=== PATIENT | male | born 1940 | race Caucasian/White ===

== ENCOUNTER 2017-09-17 21:44 | Inpatient (IN) | payer MEDICARE, OTHER ==
[2017-09-17] MEDS: ASPIRIN 325 MG TAB PO (22:12)
[2017-09-17] MEDS: IPRATROPIUM (NEB) 0.5 MG/2.5 ML AMP HHN (22:18)
[2017-09-17] MEDS: ALBUTEROL 0.083% (NEB) 2.5 MG/3 ML AMP HHN (22:18)
[2017-09-17] MEDS: SODIUM CHLORIDE 0.9% 1L BAG IV* (22:46)
[2017-09-17] MEDS: CEFEPIME 2GM/50 ML (PMX) 50 ML IVPB (22:46)
[2017-09-17] MEDS: VANCOMYCIN 1 GM (PMX) 250 ML IVPB (23:00)
[2017-09-17 23:11] LABS: ADD MAN DIFF? NO
[2017-09-17 23:17] LABS: ABNORMAL IP MESSAGE 1; BASOPHILS % 0.1 % (0.0-2.0); HEMATOCRIT 36.2 % (42.0-52.0); HEMOGLOBIN 12.5 g/dl (14.0-18.0); LYMPHOCYTES # 0.3 10^3/ul (0.8-2.9); MEAN CORPUSCULAR HGB CONC 34.5 g/dl (32.0-37.0); MEAN PLATELET VOLUME 12.3 fl (7.4-10.4); MONOCYTE # 0.5 10^3/ul (0.3-0.9); MONOCYTES % 3.2 % (0.0-11.0); NEUTROPHIL # 15.2 10^3/ul (1.6-7.5); NEUTROPHILS % 94.2 % (39.0-77.0); PLATELET COUNT 219 10^3/UL (140-415); POSITIVE DIFF @See below; RED BLOOD COUNT 4.16 10^6/ul (4.70-6.10); RED CELL DISTRIBUTION WIDTH 13.1 % (11.5-14.5)
[2017-09-17 23:17] LABS: WHITE BLOOD COUNT 16.1 10^3/ul (4.8-10.8)
[2017-09-17 23:37] LABS: LACTIC ACID 1.7 mmol/L (0.5-2.0)
[2017-09-17 23:39] LABS: INR 3.17; PROTIME 33.5 Sec (11.9-14.9); PT RATIO 2.6
[2017-09-17 23:40] LABS: PARTIAL THROMBOPLASTIN TIME 45.8 Sec (25.0-35.0)
[2017-09-17 23:42] LABS: ANION GAP 19 (8-16); BLOOD UREA NITROGEN 30 mg/dl (7-20); CALCIUM 9.9 mg/dl (8.4-10.2); CARBON DIOXIDE 25 mmol/L (21-31); CHLORIDE 101 mmol/L (97-110); CREATININE 0.94 mg/dl (0.61-1.24); GLUCOSE 134 mg/dl (70-220); POTASSIUM 4.4 mmol/L (3.5-5.1); SODIUM 141 mmol/L (135-144)
[2017-09-17 23:49] LABS: B-TYPE NATRIURETIC PEPTIDE 2490 PG/ML (0-450)
[2017-09-17 23:50] LABS: TROPONIN-I < 0.012 ng/ml (0.00-0.12)
[2017-09-18] MEDS: DILTIAZEM 25 MG INJ IV (00:01)
[2017-09-18] MEDS: DILTIAZEM-D5W 125MG/125ML DRIP 125 ML IV ×2 (00:19→21:43)
[2017-09-18] MEDS: FUROSEMIDE 40 MG INJ IV ×2 (00:22→22:48)
[2017-09-18] MEDS ORDERED: ONDANSETRON 4 MG INJ IV ×2 (00:30→09:30)
[2017-09-18] MEDS ORDERED: ACETAMINOPHEN 325 MG TAB PO (00:30)
[2017-09-18 04:56] LABS: LACTIC ACID 5.5 mmol/L (0.5-2.0)
[2017-09-18 05:03] LABS: CREATINE KINASE 156 IU/L (23-200)
[2017-09-18 05:16] LABS: CK INDEX 2.9; TROPONIN-I 0.027 ng/ml (0.00-0.12)
[2017-09-18 05:20] LABS: CK-MB 4.51 ng/ml (0.0-2.4)
[2017-09-18 06:18] LABS: LACTIC ACID 4.4 mmol/L (0.5-2.0)
[2017-09-18 06:20] LABS: CREATINE KINASE 165 IU/L (23-200)
[2017-09-18 06:25] LABS: CK INDEX 2.8
[2017-09-18 06:34] LABS: CK-MB 4.57 ng/ml (0.0-2.4)
[2017-09-18] MEDS: ALBUTEROL 0.083% (NEB) 2.5 MG/3 ML AMP HHN (07:12)
[2017-09-18] MEDS ORDERED: NITROGLYCERIN (SL) 0.4 MG TAB SL (09:30)
[2017-09-18] MEDS ORDERED: NACL 0.9% 3 ML SYG IV (09:30)
[2017-09-18] MEDS ORDERED: morphine 2 MG INJ IV (09:30)
[2017-09-18] MEDS ORDERED: NON-FORMULARY/PATIENT OWN MED (Memantine HCl/Donepezil HCl (Namzaric 28 mg-10 mg Capsule) PO (09:30)
[2017-09-18] MEDS ORDERED: LEVOFLOXACIN 500MG/D5W (PMX) 100 ML IVPB (09:30)
[2017-09-18] MEDS: CEFTRIAXONE 1 GM/NS 50 ML IVPB (09:41)
[2017-09-18] MEDS: METOPROLOL 25 MG TAB PO (09:41)
[2017-09-18] MEDS: SALMETEROL/FLUTICASONE 250/50 INHA INH ×2 (10:12→21:00)
[2017-09-18] MEDS: TAMSULOSIN (SR) 0.4 MG CAP PO ×2 (10:12→21:14)
[2017-09-18] MEDS: AZITHROMYCIN 500MG/NS (PMX) 250 ML IV (10:47)
[2017-09-18 10:58] LABS: LACTIC ACID 2.9 mmol/L (0.5-2.0)
[2017-09-18 15:49] LABS: ADD UMIC YES; UR ASCORBIC ACID NEGATIVE (NEGATIVE); UR BILIRUBIN (Dip) NEGATIVE (NEGATIVE); UR BLOOD (Dip) NEGATIVE (NEGATIVE); UR CLARITY CLEAR (CLEAR); UR COLOR YELLOW (YELLOW); UR GLUCOSE (Dip) NEGATIVE (NEGATIVE); UR KETONES (Dip) NEGATIVE (NEGATIVE); UR LEUKOCYTE ESTERASE (Dip) TRACE Leu/ul (NEGATIVE); UR NITRITE (Dip) NEGATIVE (NEGATIVE); UR RBC 1 /HPF (0-5); UR SPECIFIC GRAVITY (Dip) 1.017 (1.003-1.030); UR TOTAL PROTEIN (Dip) NEGATIVE (NEGATIVE); UR UROBILINOGEN (Dip) NEGATIVE (NEGATIVE); UR WBC 6 /HPF (0-5)
[2017-09-18 19:05] LABS: LACTIC ACID 1.6 mmol/L (0.5-2.0)
[2017-09-18] MEDS: ALBUTEROL/IPRATROPIUM (NEB) 3 ML AMP HHN (20:35)
[2017-09-18] MEDS ORDERED: ZOLPIDEM 5 MG TAB PO (21:00)
[2017-09-18] MEDS: ATORVASTATIN 20 MG TAB PO (21:00)
[2017-09-18] MEDS: MEMANTINE 10 MG TAB PO (21:00)
[2017-09-18] MEDS: ZOLPIDEM 5 MG TAB PO (21:31)
[2017-09-18] MEDS ORDERED: FUROSEMIDE 40 MG INJ (22:42)
[2017-09-18] MEDS ORDERED: METHYLPREDNISOLONE 40 MG INJ IV (23:00)
[2017-09-18] MEDS ORDERED: METHYLPREDNISOLONE 125 MG INJ (23:16)
[2017-09-18 23:35] LABS: AADO2 Arterial 466.6 mmHg (7.0-24.0); Allen Test ACCEPTAB; Arterial Base Excess -2.1 mmol/L (-3.0-3); Arterial Blood Gas Oxygen Sat 98.9 mmHG (95.0-100.0); Arterial COHb 0.3 % (0.0-3.0); Arterial Fraction of Oxyhgb 98.4 % (93.0-99.0); Arterial HCO3 25.4 mmol/L (22.0-26.0); Arterial MetHb 0.2 % (0.0-1.5); Arterial Total Hemglobin 13.1 g/dl (12.0-18.0); Arterial pCO2 55.6 mmhg (35-45); MODE MASK - NRB; Site Right Radial
[2017-09-18] MEDS ORDERED: LORAZEPAM 2 MG INJ (23:37)
[2017-09-18] MEDS: LORAZEPAM 2 MG INJ IV (23:43)
[2017-09-18] MEDS: METHYLPREDNISOLONE 125 MG INJ IV (23:43)
[2017-09-19 00:47] LABS: LACTIC ACID 0.8 mmol/L (0.5-2.0)
[2017-09-19] MEDS: LORAZEPAM 2 MG INJ IV ×2 (01:42→08:42)
[2017-09-19] MEDS: ALBUTEROL/IPRATROPIUM (NEB) 3 ML AMP HHN ×6 (02:06→20:31)
[2017-09-19 05:10] LABS: ADD MAN DIFF? NO
[2017-09-19 05:15] LABS: WHITE BLOOD COUNT 8.6 10^3/ul (4.8-10.8)
[2017-09-19 05:15] LABS: ABNORMAL IP MESSAGE 1; BASOPHILS % 0.1 % (0.0-2.0); HEMATOCRIT 31.7 % (42.0-52.0); HEMOGLOBIN 10.6 g/dl (14.0-18.0); LYMPHOCYTES # 0.3 10^3/ul (0.8-2.9); LYMPHOCYTES % 3.3 % (15.0-51.0); MEAN CORPUSCULAR HEMOGLOBIN 29.6 pg (29.0-33.0); MEAN CORPUSCULAR HGB CONC 33.4 g/dl (32.0-37.0); MEAN CORPUSCULAR VOLUME 88.5 fl (82.0-101.0); MEAN PLATELET VOLUME 12.3 fl (7.4-10.4); MONOCYTE # 0.2 10^3/ul (0.3-0.9); MONOCYTES % 2.7 % (0.0-11.0); NEUTROPHIL # 8.1 10^3/ul (1.6-7.5); NEUTROPHILS % 93.9 % (39.0-77.0); PLATELET COUNT 168 10^3/UL (140-415); POSITIVE DIFF @See below; RED BLOOD COUNT 3.58 10^6/ul (4.70-6.10); RED CELL DISTRIBUTION WIDTH 13.2 % (11.5-14.5)
[2017-09-19] MEDS ORDERED: IPRATROPIUM (NEB) 0.5 MG/2.5 ML AMP HHN (06:30)
[2017-09-19] MEDS: DILTIAZEM-D5W 125MG/125ML DRIP 125 ML IV (06:48)
[2017-09-19 07:40] LABS: ALANINE AMINOTRANSFERASE 44 IU/L (13-69); ALBUMIN 3.7 g/dl (3.3-4.9); ALBUMIN/GLOBULIN RATIO 1.48; ALKALINE PHOSPHATASE 71 IU/L (42-121); ANION GAP 19 (8-16); ASPARTATE AMINO TRANSFERASE 42 IU/L (15-46); BILIRUBIN,INDIRECT 0.5 mg/dl (0-1.1); BILIRUBIN,TOTAL 0.5 mg/dl (0.2-1.3); BLOOD UREA NITROGEN 31 mg/dl (7-20); CALCIUM 8.8 mg/dl (8.4-10.2); CARBON DIOXIDE 25 mmol/L (21-31); CHLORIDE 104 mmol/L (97-110); CREATININE 0.84 mg/dl (0.61-1.24); GLUCOSE 125 mg/dl (70-220); SODIUM 144 mmol/L (135-144); TOTAL PROTEIN 6.2 g/dl (6.1-8.1)
[2017-09-19] MEDS: DONEPEZIL 10 MG TAB PO (09:00)
[2017-09-19] MEDS: FINASTERIDE 5 MG TAB PO (09:00)
[2017-09-19] MEDS: MEMANTINE 10 MG TAB PO ×2 (09:00→20:33)
[2017-09-19] MEDS: TAMSULOSIN (SR) 0.4 MG CAP PO ×2 (09:00→20:33)
[2017-09-19] MEDS: FUROSEMIDE 40 MG INJ IV ×2 (09:32→17:58)
[2017-09-19 09:44] LABS: AADO2 Arterial 434.7 mmHg (7.0-24.0); Allen Test ACCEPTAB; Arterial Base Excess 2.8 mmol/L (-3.0-3); Arterial COHb 0.3 % (0.0-3.0); Arterial Fraction of Oxyhgb 98.5 % (93.0-99.0); Arterial HCO3 26.9 mmol/L (22.0-26.0); Arterial MetHb 0.2 % (0.0-1.5); Arterial Total Hemglobin 11.8 g/dl (12.0-18.0); Arterial pCO2 39.6 mmhg (35-45); MODE MASK - NRB; Site Left Radial
[2017-09-19] MEDS: CEFTRIAXONE 1 GM/NS 50 ML IVPB (10:12)
[2017-09-19] MEDS: AZITHROMYCIN 500MG/NS (PMX) 250 ML IV (11:00)
[2017-09-19 12:44] LABS: LACTIC ACID 1.3 mmol/L (0.5-2.0)
[2017-09-19 14:24] LABS: INR 2.97; PROTIME 31.8 Sec (11.9-14.9); PT RATIO 2.5
[2017-09-19 18:52] LABS: LACTIC ACID 1.3 mmol/L (0.5-2.0)
[2017-09-19] MEDS: ATORVASTATIN 20 MG TAB PO (20:33)
[2017-09-19] MEDS: SALMETEROL/FLUTICASONE 250/50 INHA INH (23:36)
[2017-09-20] MEDS: ALBUTEROL/IPRATROPIUM (NEB) 3 ML AMP HHN ×6 (01:52→20:09)
[2017-09-20 05:15] LABS: AADO2 Arterial 125.2 mmHg (7.0-24.0); Allen Test ACCEPTAB; Arterial Base Excess 5.6 mmol/L (-3.0-3); Arterial Blood Gas Oxygen Sat 95.6 mmHG (95.0-100.0); Arterial COHb 0.3 % (0.0-3.0); Arterial Fraction of Oxyhgb 95.1 % (93.0-99.0); Arterial HCO3 29.1 mmol/L (22.0-26.0); Arterial MetHb 0.2 % (0.0-1.5); Arterial Total Hemglobin 11.7 g/dl (12.0-18.0); Arterial pCO2 38.5 mmhg (35-45); MODE MASK - VENTI; Site Left Radial
[2017-09-20] MEDS: FUROSEMIDE 40 MG INJ IV ×2 (05:22→17:50)
[2017-09-20] MEDS: PANTOPRAZOLE 40 MG INJ IV (05:22)
[2017-09-20 06:05] LABS: ADD MAN DIFF? NO
[2017-09-20 06:21] LABS: WHITE BLOOD COUNT 7.6 10^3/ul (4.8-10.8)
[2017-09-20 06:21] LABS: ABNORMAL IP MESSAGE 1; HEMATOCRIT 33.9 % (42.0-52.0); HEMOGLOBIN 11.3 g/dl (14.0-18.0); LYMPHOCYTES # 0.5 10^3/ul (0.8-2.9); LYMPHOCYTES % 6.2 % (15.0-51.0); MEAN CORPUSCULAR HEMOGLOBIN 28.9 pg (29.0-33.0); MEAN CORPUSCULAR HGB CONC 33.3 g/dl (32.0-37.0); MEAN CORPUSCULAR VOLUME 86.7 fl (82.0-101.0); MEAN PLATELET VOLUME 12.3 fl (7.4-10.4); MONOCYTE # 0.4 10^3/ul (0.3-0.9); MONOCYTES % 5.5 % (0.0-11.0); NEUTROPHIL # 6.7 10^3/ul (1.6-7.5); NEUTROPHILS % 87.9 % (39.0-77.0); PLATELET COUNT 175 10^3/UL (140-415); POSITIVE DIFF @See below; RED BLOOD COUNT 3.91 10^6/ul (4.70-6.10)
[2017-09-20] MEDS: DILTIAZEM-D5W 125MG/125ML DRIP 125 ML IV ×2 (06:31→18:02)
[2017-09-20 06:54] LABS: INR 3.13; PROTIME 33.1 Sec (11.9-14.9); PT RATIO 2.6
[2017-09-20 06:58] LABS: ANION GAP 15 (8-16); BLOOD UREA NITROGEN 33 mg/dl (7-20); CALCIUM 9.2 mg/dl (8.4-10.2); CARBON DIOXIDE 34 mmol/L (21-31); CHLORIDE 100 mmol/L (97-110); CREATININE 0.77 mg/dl (0.61-1.24); GLUCOSE 152 mg/dl (70-220); SODIUM 146 mmol/L (135-144)
[2017-09-20 07:03] LABS: LACTIC ACID 1.1 mmol/L (0.5-2.0)
[2017-09-20] MEDS: FINASTERIDE 5 MG TAB PO (09:00)
[2017-09-20] MEDS: DONEPEZIL 10 MG TAB PO (09:00)
[2017-09-20] MEDS: TAMSULOSIN (SR) 0.4 MG CAP PO ×2 (09:00→20:41)
[2017-09-20] MEDS: MEMANTINE 10 MG TAB PO ×2 (09:00→20:40)
[2017-09-20] MEDS: POTASSIUM CHLORIDE 100 ML IVPB ×2 (09:41→11:38)
[2017-09-20] MEDS: SALMETEROL/FLUTICASONE 250/50 INHA INH ×2 (09:42→20:40)
[2017-09-20] MEDS: METHYLPREDNISOLONE 40 MG INJ IV ×3 (09:51→21:36)
[2017-09-20] MEDS: CEFEPIME 1GM/50 ML (PMX) 50 ML IVPB ×2 (09:52→20:40)
[2017-09-20 11:11] LABS: CHOL/HDL RATIO 3.3 RATIO; HDL CHOLESTEROL 45 mg/dl (31-75); LDL CHOLESTEROL,CALCULATED 90 mg/dl; TRIGLYCERIDES 68 mg/dl (0-149)
[2017-09-20 11:11] LABS: CHOLESTEROL 149 mg/dl (100-200); MAGNESIUM 2.4 mg/dl (1.7-2.5)
[2017-09-20 11:26] LABS: FREE T4 (FREE THYROXINE) 1.76 ng/dl (0.85-1.93)
[2017-09-20 11:41] LABS: THYROID STIMULATING HORMONE 0.143 MIU/L (0.465-4.680)
[2017-09-20] MEDS: AZITHROMYCIN 500MG/NS (PMX) 250 ML IV (11:50)
[2017-09-20 13:54] LABS: HEMOGLOBIN A1C 5.4 % (0-5.9)
[2017-09-20] MEDS: POTASSIUM CHLORIDE (SR) 20 MEQ TAB PO (15:55)
[2017-09-20] MEDS: DIGOXIN 500 MCG INJ IV ×2 (15:56→21:37)
[2017-09-20] MEDS: METOPROLOL 25 MG TAB PO ×2 (16:01→20:41)
[2017-09-20] MEDS: ATORVASTATIN 20 MG TAB PO (20:40)
[2017-09-20] MEDS: ZOLPIDEM 5 MG TAB PO (22:48)
[2017-09-21] MEDS: ALBUTEROL/IPRATROPIUM (NEB) 3 ML AMP HHN ×6 (00:27→21:28)
[2017-09-21] MEDS: ACETAMINOPHEN 325 MG TAB PO (05:23)
[2017-09-21 05:42] LABS: ADD MAN DIFF? NO
[2017-09-21 05:57] LABS: WHITE BLOOD COUNT 9.5 10^3/ul (4.8-10.8)
[2017-09-21 05:57] LABS: ABNORMAL IP MESSAGE 1; BASOPHILS % 0.1 % (0.0-2.0); HEMATOCRIT 34.2 % (42.0-52.0); HEMOGLOBIN 11.5 g/dl (14.0-18.0); LYMPHOCYTES # 0.4 10^3/ul (0.8-2.9); MEAN CORPUSCULAR HEMOGLOBIN 29.7 pg (29.0-33.0); MEAN CORPUSCULAR HGB CONC 33.6 g/dl (32.0-37.0); MEAN CORPUSCULAR VOLUME 88.4 fl (82.0-101.0); MEAN PLATELET VOLUME 12.5 fl (7.4-10.4); MONOCYTE # 0.2 10^3/ul (0.3-0.9); MONOCYTES % 2.2 % (0.0-11.0); NEUTROPHIL # 8.9 10^3/ul (1.6-7.5); NEUTROPHILS % 93.4 % (39.0-77.0); PLATELET COUNT 198 10^3/UL (140-415); POSITIVE DIFF @See below; RED BLOOD COUNT 3.87 10^6/ul (4.70-6.10); RED CELL DISTRIBUTION WIDTH 13.1 % (11.5-14.5)
[2017-09-21] MEDS: METHYLPREDNISOLONE 40 MG INJ IV ×2 (06:09→21:07)
[2017-09-21] MEDS: FUROSEMIDE 40 MG INJ IV ×2 (06:10→17:38)
[2017-09-21 06:18] LABS: INR 3.57; PROTIME 36.8 Sec (11.9-14.9); PT RATIO 2.9
[2017-09-21 06:20] LABS: ANION GAP 15 (8-16); BLOOD UREA NITROGEN 43 mg/dl (7-20); CALCIUM 9.5 mg/dl (8.4-10.2); CARBON DIOXIDE 35 mmol/L (21-31); CHLORIDE 101 mmol/L (97-110); CREATININE 0.81 mg/dl (0.61-1.24); GLUCOSE 173 mg/dl (70-220); SODIUM 147 mmol/L (135-144)
[2017-09-21 06:33] LABS: B-TYPE NATRIURETIC PEPTIDE 1920 PG/ML (0-450)
[2017-09-21] MEDS: CEFEPIME 1GM/50 ML (PMX) 50 ML IVPB ×2 (09:54→21:07)
[2017-09-21] MEDS: SALMETEROL/FLUTICASONE 250/50 INHA INH ×2 (09:57→21:51)
[2017-09-21] MEDS: TAMSULOSIN (SR) 0.4 MG CAP PO ×2 (10:00→21:08)
[2017-09-21] MEDS: MEMANTINE 10 MG TAB PO ×2 (10:00→21:08)
[2017-09-21] MEDS: DONEPEZIL 10 MG TAB PO (10:00)
[2017-09-21] MEDS: DILTIAZEM 30 MG TAB PO ×4 (10:00→21:09)
[2017-09-21] MEDS: METOPROLOL 25 MG TAB PO ×3 (10:00→21:09)
[2017-09-21] MEDS: FINASTERIDE 5 MG TAB PO (10:00)
[2017-09-21 11:37] LABS: PHOSPHORUS 2.6 mg/dl (2.5-4.9)
[2017-09-21 11:37] LABS: MAGNESIUM 2.6 mg/dl (1.7-2.5)
[2017-09-21] MEDS: AZITHROMYCIN 500MG/NS (PMX) 250 ML IV (13:03)
[2017-09-21] MEDS: ATORVASTATIN 20 MG TAB PO (21:08)
[2017-09-21] MEDS: DOCUSATE SODIUM 100 MG CAP PO (21:08)
[2017-09-22] MEDS: ALBUTEROL/IPRATROPIUM (NEB) 3 ML AMP HHN ×6 (01:21→20:40)
[2017-09-22] MEDS: POLYETHYLENE GLYCOL 17 GM PACKET PO ×2 (01:38→09:37)
[2017-09-22 05:16] LABS: ADD MAN DIFF? NO
[2017-09-22 05:24] LABS: ABNORMAL IP MESSAGE 1; BASOPHILS % 0.1 % (0.0-2.0); HEMATOCRIT 35.5 % (42.0-52.0); HEMOGLOBIN 12.1 g/dl (14.0-18.0); LYMPHOCYTES # 0.5 10^3/ul (0.8-2.9); MEAN CORPUSCULAR HGB CONC 34.1 g/dl (32.0-37.0); MEAN CORPUSCULAR VOLUME 88.1 fl (82.0-101.0); MEAN PLATELET VOLUME 12.4 fl (7.4-10.4); MONOCYTE # 0.3 10^3/ul (0.3-0.9); MONOCYTES % 2.2 % (0.0-11.0); NEUTROPHIL # 12.5 10^3/ul (1.6-7.5); NEUTROPHILS % 93.1 % (39.0-77.0); PLATELET COUNT 227 10^3/UL (140-415); POSITIVE DIFF @See below; RED BLOOD COUNT 4.03 10^6/ul (4.70-6.10)
[2017-09-22 05:24] LABS: WHITE BLOOD COUNT 13.5 10^3/ul (4.8-10.8)
[2017-09-22 05:35] LABS: ANION GAP 17 (8-16); BLOOD UREA NITROGEN 44 mg/dl (7-20); CALCIUM 9.3 mg/dl (8.4-10.2); CARBON DIOXIDE 34 mmol/L (21-31); CHLORIDE 97 mmol/L (97-110); CREATININE 0.83 mg/dl (0.61-1.24); GLUCOSE 156 mg/dl (70-220); POTASSIUM 3.7 mmol/L (3.5-5.1); SODIUM 144 mmol/L (135-144)
[2017-09-22 05:48] LABS: INR 2.28; PROTIME 25.7 Sec (11.9-14.9)
[2017-09-22 05:50] LABS: PHOSPHORUS 3.9 mg/dl (2.5-4.9)
[2017-09-22 05:50] LABS: MAGNESIUM 2.4 mg/dl (1.7-2.5)
[2017-09-22 05:53] LABS: FREE T4 (FREE THYROXINE) 1.26 ng/dl (0.85-1.93)
[2017-09-22 06:06] LABS: THYROID STIMULATING HORMONE 0.091 MIU/L (0.465-4.680)
[2017-09-22 06:08] LABS: LYMPHOCYTES % 3.9 % (15.0-51.0)
[2017-09-22] MEDS: FUROSEMIDE 40 MG INJ IV ×2 (06:47→17:14)
[2017-09-22] MEDS ORDERED: BISACODYL (EC) 5 MG TAB PO (09:30)
[2017-09-22] MEDS: METHYLPREDNISOLONE 40 MG INJ IV ×2 (09:37→22:39)
[2017-09-22] MEDS: CEFEPIME 1GM/50 ML (PMX) 50 ML IVPB (09:37)
[2017-09-22] MEDS: DONEPEZIL 10 MG TAB PO (09:38)
[2017-09-22] MEDS: MEMANTINE 10 MG TAB PO ×2 (09:38→22:41)
[2017-09-22] MEDS: DOCUSATE SODIUM 100 MG CAP PO ×2 (09:38→22:40)
[2017-09-22] MEDS: TAMSULOSIN (SR) 0.4 MG CAP PO ×2 (09:38→22:39)
[2017-09-22] MEDS: DILTIAZEM 30 MG TAB PO ×2 (09:38→13:00)
[2017-09-22] MEDS: FINASTERIDE 5 MG TAB PO (09:39)
[2017-09-22] MEDS: METOPROLOL 25 MG TAB PO ×3 (09:39→22:41)
[2017-09-22] MEDS: SALMETEROL/FLUTICASONE 250/50 INHA INH ×2 (09:39→22:39)
[2017-09-22] MEDS: DILTIAZEM (CD) 120 MG CAP PO ×2 (14:19→22:40)
[2017-09-22] MEDS: METHIMAZOLE 5 MG TAB PO (14:19)
[2017-09-22] MEDS: POTASSIUM CHLORIDE (SR) 20 MEQ TAB PO (14:22)
[2017-09-22] MEDS: AMIODARONE 200 MG TAB PO ×2 (14:23→22:41)
[2017-09-22] MEDS: ACETYLCYSTEINE 20% 4 ML VIAL NEB ×3 (14:39→20:33)
[2017-09-22] MEDS: WARFARIN 2 MG TAB PO (17:13)
[2017-09-22] MEDS: ATORVASTATIN 20 MG TAB PO (22:39)
[2017-09-23] MEDS: ACETYLCYSTEINE 20% 4 ML VIAL NEB ×6 (00:55→21:18)
[2017-09-23] MEDS: ALBUTEROL/IPRATROPIUM (NEB) 3 ML AMP HHN ×6 (01:37→21:18)
[2017-09-23] MEDS: FUROSEMIDE 40 MG INJ IV (06:35)
[2017-09-23 07:26] LABS: ADD MAN DIFF? NO
[2017-09-23 07:31] LABS: ABNORMAL IP MESSAGE 1; BASOPHILS % 0.1 % (0.0-2.0); HEMATOCRIT 37.9 % (42.0-52.0); HEMOGLOBIN 12.8 g/dl (14.0-18.0); LYMPHOCYTES # 0.5 10^3/ul (0.8-2.9); LYMPHOCYTES % 3.7 % (15.0-51.0); MEAN CORPUSCULAR HEMOGLOBIN 29.6 pg (29.0-33.0); MEAN CORPUSCULAR HGB CONC 33.8 g/dl (32.0-37.0); MEAN CORPUSCULAR VOLUME 87.5 fl (82.0-101.0); MEAN PLATELET VOLUME 12.1 fl (7.4-10.4); MONOCYTE # 0.4 10^3/ul (0.3-0.9); NEUTROPHIL # 11.9 10^3/ul (1.6-7.5); NEUTROPHILS % 91.3 % (39.0-77.0); PLATELET COUNT 259 10^3/UL (140-415); POSITIVE DIFF @See below; RED BLOOD COUNT 4.33 10^6/ul (4.70-6.10); RED CELL DISTRIBUTION WIDTH 12.8 % (11.5-14.5)
[2017-09-23 07:48] LABS: ANION GAP 15 (8-16); BLOOD UREA NITROGEN 44 mg/dl (7-20); CALCIUM 9.2 mg/dl (8.4-10.2); CARBON DIOXIDE 36 mmol/L (21-31); CHLORIDE 94 mmol/L (97-110); GLUCOSE 150 mg/dl (70-220); POTASSIUM 3.6 mmol/L (3.5-5.1); SODIUM 141 mmol/L (135-144)
[2017-09-23 07:51] LABS: INR 2.23; PROTIME 25.3 Sec (11.9-14.9)
[2017-09-23 07:54] LABS: MAGNESIUM 2.4 mg/dl (1.7-2.5)
[2017-09-23 07:54] LABS: PHOSPHORUS 3.7 mg/dl (2.5-4.9)
[2017-09-23] MEDS: DOCUSATE SODIUM 100 MG CAP PO ×2 (08:43→22:05)
[2017-09-23] MEDS: POLYETHYLENE GLYCOL 17 GM PACKET PO (08:43)
[2017-09-23] MEDS: MEMANTINE 10 MG TAB PO ×2 (08:43→22:06)
[2017-09-23] MEDS: METHYLPREDNISOLONE 40 MG INJ IV ×4 (08:43→23:51)
[2017-09-23] MEDS: SALMETEROL/FLUTICASONE 250/50 INHA INH ×2 (08:43→22:03)
[2017-09-23] MEDS: AMIODARONE 200 MG TAB PO (08:44)
[2017-09-23] MEDS: FINASTERIDE 5 MG TAB PO (08:44)
[2017-09-23] MEDS: DONEPEZIL 10 MG TAB PO (08:44)
[2017-09-23] MEDS: METOPROLOL 25 MG TAB PO ×3 (08:45→22:04)
[2017-09-23] MEDS: DILTIAZEM (CD) 120 MG CAP PO ×2 (08:45→22:05)
[2017-09-23] MEDS: TAMSULOSIN (SR) 0.4 MG CAP PO ×2 (08:49→22:05)
[2017-09-23] MEDS: POTASSIUM CHLORIDE (SR) 20 MEQ TAB PO (12:49)
[2017-09-23] MEDS: AMIODARONE 150MG/D5W BOLUS 100 ML IV (12:55)
[2017-09-23] MEDS: WARFARIN 2 MG TAB PO (17:30)
[2017-09-23] MEDS: ATORVASTATIN 20 MG TAB PO (21:00)
[2017-09-23] MEDS: clonAZEPAM 0.5 MG TAB PO (21:00)
[2017-09-23] MEDS: AMIODARONE 900 MG in DEXTROSE 5% 482 ML IV (23:18)
[2017-09-24] MEDS: ACETYLCYSTEINE 20% 4 ML VIAL NEB ×6 (00:42→20:47)
[2017-09-24] MEDS: ALBUTEROL/IPRATROPIUM (NEB) 3 ML AMP HHN ×6 (00:42→20:47)
[2017-09-24] MEDS: METHYLPREDNISOLONE 40 MG INJ IV ×3 (05:08→20:11)
[2017-09-24] MEDS: ACETAMINOPHEN 325 MG TAB PO ×2 (05:08→22:37)
[2017-09-24 09:04] LABS: ADD MAN DIFF? NO
[2017-09-24 09:08] LABS: ABNORMAL IP MESSAGE 1; BASOPHILS % 0.1 % (0.0-2.0); EOSINOPHILS % 0.1 % (0.0-7.0); HEMATOCRIT 36.2 % (42.0-52.0); HEMOGLOBIN 12.5 g/dl (14.0-18.0); LYMPHOCYTES # 0.6 10^3/ul (0.8-2.9); LYMPHOCYTES % 3.6 % (15.0-51.0); MEAN CORPUSCULAR HEMOGLOBIN 29.8 pg (29.0-33.0); MEAN CORPUSCULAR HGB CONC 34.5 g/dl (32.0-37.0); MEAN CORPUSCULAR VOLUME 86.4 fl (82.0-101.0); MEAN PLATELET VOLUME 12.5 fl (7.4-10.4); MONOCYTE # 0.4 10^3/ul (0.3-0.9); MONOCYTES % 2.1 % (0.0-11.0); NEUTROPHILS % 92.3 % (39.0-77.0); PLATELET COUNT 249 10^3/UL (140-415); POSITIVE DIFF @See below; RED BLOOD COUNT 4.19 10^6/ul (4.70-6.10); RED CELL DISTRIBUTION WIDTH 12.9 % (11.5-14.5)
[2017-09-24 09:08] LABS: WHITE BLOOD COUNT 16.3 10^3/ul (4.8-10.8)
[2017-09-24 09:35] LABS: ANION GAP 16 (8-16); BLOOD UREA NITROGEN 46 mg/dl (7-20); CALCIUM 9.4 mg/dl (8.4-10.2); CARBON DIOXIDE 35 mmol/L (21-31); CHLORIDE 92 mmol/L (97-110); CREATININE 0.87 mg/dl (0.61-1.24); GLUCOSE 151 mg/dl (70-220); POTASSIUM 3.8 mmol/L (3.5-5.1); SODIUM 139 mmol/L (135-144)
[2017-09-24 09:39] LABS: INR 3.33; PROTIME 34.8 Sec (11.9-14.9); PT RATIO 2.7
[2017-09-24 09:43] LABS: MAGNESIUM 2.5 mg/dl (1.7-2.5)
[2017-09-24 09:43] LABS: PHOSPHORUS 3.7 mg/dl (2.5-4.9)
[2017-09-24] MEDS: SALMETEROL/FLUTICASONE 250/50 INHA INH ×2 (10:26→20:17)
[2017-09-24] MEDS: FUROSEMIDE 40 MG INJ IV (10:27)
[2017-09-24] MEDS: METOPROLOL 25 MG TAB PO ×3 (10:28→20:10)
[2017-09-24] MEDS: TAMSULOSIN (SR) 0.4 MG CAP PO ×2 (10:28→20:09)
[2017-09-24] MEDS: MEMANTINE 10 MG TAB PO ×2 (10:28→20:09)
[2017-09-24] MEDS: DILTIAZEM (CD) 120 MG CAP PO (10:28)
[2017-09-24] MEDS: FINASTERIDE 5 MG TAB PO (10:29)
[2017-09-24] MEDS: DOCUSATE SODIUM 100 MG CAP PO ×2 (10:29→20:08)
[2017-09-24] MEDS: DONEPEZIL 10 MG TAB PO (10:41)
[2017-09-24] MEDS ORDERED: DIPHENHYDRAMINE 50 MG INJ IV (12:00)
[2017-09-24] MEDS ORDERED: OXYCODONE/ACETAMINOPHEN (5/325) TAB PO ×2 (12:00)
[2017-09-24] MEDS ORDERED: METOCLOPRAMIDE 10 MG INJ IV (12:00)
[2017-09-24] MEDS ORDERED: hydrALAzine 20 MG INJ IV (12:00)
[2017-09-24] MEDS ORDERED: EPHEDrine SULFATE 50 MG/5 ML SYG IV (12:00)
[2017-09-24] MEDS ORDERED: MIDAZOLAM 1 MG/ML 2 ML INJ IV (12:00)
[2017-09-24] MEDS ORDERED: MEPERIDINE 25 MG INJ IV (12:00)
[2017-09-24] MEDS ORDERED: ONDANSETRON 4 MG INJ IV (12:00)
[2017-09-24] MEDS ORDERED: FENTAnyl 50 MCG/ML VIAL IV ×3 (12:00)
[2017-09-24] MEDS ORDERED: LABETALOL HCL 20MG INJ IV (12:00)
[2017-09-24] MEDS: PROPOFOL 20 ML (13:18)
[2017-09-24] MEDS: POLYETHYLENE GLYCOL 17 GM PACKET PO (13:55)
[2017-09-24] MEDS: POTASSIUM CHLORIDE (SR) 10 MEQ TAB PO (13:56)
[2017-09-24] MEDS: ATORVASTATIN 20 MG TAB PO (20:09)
[2017-09-24] MEDS: DILTIAZEM (CD) 180 MG CAP PO (20:09)
[2017-09-25] MEDS: ALBUTEROL/IPRATROPIUM (NEB) 3 ML AMP HHN ×6 (00:57→21:15)
[2017-09-25] MEDS: ACETYLCYSTEINE 20% 4 ML VIAL NEB ×6 (00:57→21:16)
[2017-09-25] MEDS: METHYLPREDNISOLONE 40 MG INJ IV ×2 (04:29→21:59)
[2017-09-25 07:27] LABS: ADD MAN DIFF? NO
[2017-09-25 07:38] LABS: ABNORMAL IP MESSAGE 1; BASOPHILS % 0.1 % (0.0-2.0); HEMATOCRIT 34.4 % (42.0-52.0); LYMPHOCYTES # 0.6 10^3/ul (0.8-2.9); LYMPHOCYTES % 3.5 % (15.0-51.0); MEAN CORPUSCULAR HEMOGLOBIN 29.9 pg (29.0-33.0); MEAN CORPUSCULAR HGB CONC 34.9 g/dl (32.0-37.0); MEAN CORPUSCULAR VOLUME 85.6 fl (82.0-101.0); MEAN PLATELET VOLUME 12.3 fl (7.4-10.4); MONOCYTE # 0.4 10^3/ul (0.3-0.9); MONOCYTES % 2.3 % (0.0-11.0); NEUTROPHILS % 91.6 % (39.0-77.0); PLATELET COUNT 245 10^3/UL (140-415); POSITIVE DIFF @See below; RED BLOOD COUNT 4.02 10^6/ul (4.70-6.10); RED CELL DISTRIBUTION WIDTH 12.8 % (11.5-14.5)
[2017-09-25 07:38] LABS: WHITE BLOOD COUNT 16.4 10^3/ul (4.8-10.8)
[2017-09-25 07:51] LABS: MAGNESIUM 2.5 mg/dl (1.7-2.5)
[2017-09-25 07:59] LABS: ANION GAP 11 (8-16); BLOOD UREA NITROGEN 54 mg/dl (7-20); CALCIUM 9.1 mg/dl (8.4-10.2); CARBON DIOXIDE 35 mmol/L (21-31); CHLORIDE 92 mmol/L (97-110); CREATININE 0.94 mg/dl (0.61-1.24); GLUCOSE 121 mg/dl (70-220); POTASSIUM 3.9 mmol/L (3.5-5.1); SODIUM 134 mmol/L (135-144)
[2017-09-25 08:04] LABS: INR 4.49; PROTIME 44.2 Sec (11.9-14.9); PT RATIO 3.5
[2017-09-25] MEDS: SALMETEROL/FLUTICASONE 250/50 INHA INH ×2 (09:22→21:00)
[2017-09-25] MEDS: DONEPEZIL 10 MG TAB PO (09:25)
[2017-09-25] MEDS: MEMANTINE 10 MG TAB PO ×2 (09:25→22:00)
[2017-09-25] MEDS: FUROSEMIDE 40 MG INJ IV (09:25)
[2017-09-25] MEDS: FINASTERIDE 5 MG TAB PO (09:26)
[2017-09-25] MEDS: METOPROLOL 25 MG TAB PO ×3 (09:26→21:59)
[2017-09-25] MEDS: DILTIAZEM (CD) 180 MG CAP PO ×2 (09:26→22:00)
[2017-09-25] MEDS: DOCUSATE SODIUM 100 MG CAP PO ×2 (09:26→22:00)
[2017-09-25] MEDS: POLYETHYLENE GLYCOL 17 GM PACKET PO (09:27)
[2017-09-25] MEDS: TAMSULOSIN (SR) 0.4 MG CAP PO ×2 (09:39→21:59)
[2017-09-25] MEDS: ATORVASTATIN 20 MG TAB PO (21:59)
[2017-09-26] MEDS: ALBUTEROL/IPRATROPIUM (NEB) 3 ML AMP HHN ×4 (00:43→13:00)
[2017-09-26] MEDS: ACETYLCYSTEINE 20% 4 ML VIAL NEB ×4 (00:43→13:00)
[2017-09-26] MEDS: LEVALBUTEROL (NEB) 0.63 MG/3 ML AMP HHN (01:38)
[2017-09-26] MEDS: POLYETHYLENE GLYCOL 17 GM PACKET PO (09:00)
[2017-09-26] MEDS: MEMANTINE 10 MG TAB PO (09:18)
[2017-09-26] MEDS: DONEPEZIL 10 MG TAB PO (09:18)
[2017-09-26] MEDS: SALMETEROL/FLUTICASONE 250/50 INHA INH (09:18)
[2017-09-26] MEDS: METOPROLOL 25 MG TAB PO ×2 (09:19→13:00)
[2017-09-26] MEDS: DILTIAZEM (CD) 180 MG CAP PO (09:19)
[2017-09-26] MEDS: DOCUSATE SODIUM 100 MG CAP PO (09:19)
[2017-09-26] MEDS: TAMSULOSIN (SR) 0.4 MG CAP PO (09:19)
[2017-09-26] MEDS: FINASTERIDE 5 MG TAB PO (09:19)
[2017-09-26] MEDS: METHYLPREDNISOLONE 40 MG INJ IV (09:20)
[2017-09-26] MEDS: FUROSEMIDE 40 MG INJ IV (09:20)
[2017-09-26 09:46] LABS: ADD MAN DIFF? NO
[2017-09-26 09:59] LABS: WHITE BLOOD COUNT 18.6 10^3/ul (4.8-10.8)
[2017-09-26 09:59] LABS: ABNORMAL IP MESSAGE 1; BASOPHIL # 0.1 10^3/ul (0.0-0.1); BASOPHILS % 0.3 % (0.0-2.0); HEMATOCRIT 38.5 % (42.0-52.0); HEMOGLOBIN 13.3 g/dl (14.0-18.0); LYMPHOCYTES # 0.5 10^3/ul (0.8-2.9); LYMPHOCYTES % 2.5 % (15.0-51.0); MEAN CORPUSCULAR HEMOGLOBIN 29.6 pg (29.0-33.0); MEAN CORPUSCULAR HGB CONC 34.5 g/dl (32.0-37.0); MEAN CORPUSCULAR VOLUME 85.7 fl (82.0-101.0); MEAN PLATELET VOLUME 12.3 fl (7.4-10.4); MONOCYTE # 0.7 10^3/ul (0.3-0.9); MONOCYTES % 3.9 % (0.0-11.0); NEUTROPHIL # 16.6 10^3/ul (1.6-7.5); NEUTROPHILS % 89.1 % (39.0-77.0); PLATELET COUNT 234 10^3/UL (140-415); POSITIVE DIFF @See below; RED BLOOD COUNT 4.49 10^6/ul (4.70-6.10); RED CELL DISTRIBUTION WIDTH 12.2 % (11.5-14.5)
[2017-09-26 10:17] LABS: INR 2.89; PROTIME 31.1 Sec (11.9-14.9); PT RATIO 2.4
[2017-09-26 10:25] LABS: ALANINE AMINOTRANSFERASE 58 IU/L (13-69); ALBUMIN 3.5 g/dl (3.3-4.9); ALBUMIN/GLOBULIN RATIO 1.29; ALKALINE PHOSPHATASE 70 IU/L (42-121); ANION GAP 15 (8-16); ASPARTATE AMINO TRANSFERASE 24 IU/L (15-46); BILIRUBIN,INDIRECT 0.5 mg/dl (0-1.1); BILIRUBIN,TOTAL 0.5 mg/dl (0.2-1.3); BLOOD UREA NITROGEN 42 mg/dl (7-20); CALCIUM 9.1 mg/dl (8.4-10.2); CARBON DIOXIDE 36 mmol/L (21-31); CHLORIDE 90 mmol/L (97-110); CREATININE 0.78 mg/dl (0.61-1.24); GLUCOSE 156 mg/dl (70-220); MAGNESIUM 2.6 mg/dl (1.7-2.5); POTASSIUM 4.1 mmol/L (3.5-5.1); SODIUM 137 mmol/L (135-144); TOTAL PROTEIN 6.2 g/dl (6.1-8.1)
[2017-09-26 10:29] LABS: B-TYPE NATRIURETIC PEPTIDE 536 PG/ML (0-450)
[2017-09-26 10:30] LABS: FREE T4 (FREE THYROXINE) 1.05 ng/dl (0.85-1.93)
== END 2017-09-26 13:30 | disposition home health service (06) | DRG 871 ==
LOC: ICU 09-19 00:05 → MS4 09-22 18:39 → E/R 21:44 → ICU 09-19 00:07 → MS4 09-18 00:23 → ICU 09-18 23:51
PROC: 5A2204Z Restoration of Cardiac Rhythm, Single (ICD-10-PCS; principal; 2017-09-24 10:50)
DX: A41.9 Sepsis, unspecified organism (principal); J18.9 Pneumonia, unspecified organism; I50.33 Acute on chronic diastolic (congestive) heart failure; J96.01 Acute respiratory failure with hypoxia; J96.02 Acute respiratory failure with hypercapnia; J44.0 Chronic obstructive pulmonary disease with (acute) lower respiratory infection; J44.1 Chronic obstructive pulmonary disease with (acute) exacerbation; I11.0 Hypertensive heart disease with heart failure; I48.91 Unspecified atrial fibrillation; R65.20 Severe sepsis without septic shock; Z95.2 Presence of prosthetic heart valve; Z95.1 Presence of aortocoronary bypass graft; E78.5 Hyperlipidemia, unspecified; J20.9 Acute bronchitis, unspecified; D69.6 Thrombocytopenia, unspecified; N40.0 Benign prostatic hyperplasia without lower urinary tract symptoms; R13.10 Dysphagia, unspecified
CPT/HCPCS: 36415; 36600; 71045; 80048; 80053; 80061; 81001; 82550; 82553; 82803; 83036; 83605; 83735; 83880; 84100; 84439; 84443; 84484; 85025; 85610; 85730; 87040; 87070; 87081; 87400; 92526; 92610; 92960; 93005; 93306; 94640; 94644; 94664; 96365; 96366; 96375; 96376; 97116; 97162; 97530; 99291-25

== ENCOUNTER 2019-03-01 16:25 | Emergency (ER) | payer MEDICARE, OTHER ==
[2019-03-01 17:34] LABS: ADD MAN DIFF? NO
[2019-03-01 17:36] LABS: BASOPHILS % 0.1 % (0.0-2.0); EOSINOPHILS # 0.1 10^3/ul (0.0-0.5); EOSINOPHILS % 0.8 % (0.0-7.0); HEMATOCRIT 30.8 % (42.0-52.0); HEMOGLOBIN 9.5 g/dl (14.0-18.0); LYMPHOCYTES # 0.9 10^3/ul (0.8-2.9); LYMPHOCYTES % 10.8 % (15.0-51.0); MEAN CORPUSCULAR HEMOGLOBIN 26.5 pg (29.0-33.0); MEAN CORPUSCULAR HGB CONC 30.8 g/dl (32.0-37.0); MEAN CORPUSCULAR VOLUME 85.8 fl (82.0-101.0); MONOCYTE # 0.7 10^3/ul (0.3-0.9); MONOCYTES % 8.8 % (0.0-11.0); NEUTROPHIL # 6.3 10^3/ul (1.6-7.5); NEUTROPHILS % 79.1 % (39.0-77.0); PLATELET COUNT 300 10^3/UL (140-415); RED BLOOD COUNT 3.59 10^6/ul (4.70-6.10); RED CELL DISTRIBUTION WIDTH 16.9 % (11.5-14.5)
[2019-03-01 17:53] LABS: ALANINE AMINOTRANSFERASE 13 IU/L (13-69); ALBUMIN 3.4 g/dl (3.3-4.9); ALBUMIN/GLOBULIN RATIO 0.85; ALKALINE PHOSPHATASE 126 IU/L (42-121); ANION GAP 5 (5-13); ASPARTATE AMINO TRANSFERASE 15 IU/L (15-46); BILIRUBIN,INDIRECT 0.2 mg/dl (0-1.1); BILIRUBIN,TOTAL 0.2 mg/dl (0.2-1.3); BLOOD UREA NITROGEN 12 mg/dl (7-20); CALCIUM 9.2 mg/dl (8.4-10.2); CARBON DIOXIDE 30 mmol/L (21-31); CHLORIDE 99 mmol/L (97-110); CREATININE 0.59 mg/dl (0.61-1.24); GLUCOSE 107 mg/dl (70-220); LIPASE 36 U/L (23-300); POTASSIUM 3.4 mmol/L (3.5-5.1); SODIUM 134 mmol/L (135-144); TOTAL PROTEIN 7.4 g/dl (6.1-8.1)
[2019-03-01 18:06] LABS: TROPONIN-I < 0.012 ng/ml (0.000-0.120)
[2019-03-01 18:13] LABS: INR 1.76; PROTIME 20.6 Sec (11.9-14.9); PT RATIO 1.6
[2019-03-01 18:14] LABS: PARTIAL THROMBOPLASTIN TIME 36.9 Sec (23.0-35.0)
[2019-03-01] MEDS: SOD CHLORIDE 0.9% 500 ML IV (19:31)
== END 2019-03-01 20:03 | disposition left against medical advice (07) ==
LOC: E/R 16:25
DX: R91.8 Other nonspecific abnormal finding of lung field (principal); D59.1 Other autoimmune hemolytic anemias; R07.9 Chest pain, unspecified; I48.91 Unspecified atrial fibrillation; F17.210 Nicotine dependence, cigarettes, uncomplicated; Z79.01 Long term (current) use of anticoagulants; Z95.1 Presence of aortocoronary bypass graft
CPT/HCPCS: 36415; 71045; 80053; 83690; 84484; 85025; 85610; 85730; 86850; 86900; 86901; 93005; 99285-25